=== PATIENT | male | born 1995 | race Caucasian/White ===

== ENCOUNTER 2017-01-19 01:07 | Emergency (ER) | payer OTHER, BC ==
--- NOTE | 2017-01-19 01:12 | EDPHY ---
H & P HPI/ROS: HPI CHIEF COMPLAINT: Closed head injury HISTORY OF PRESENT ILLNESS: This patient otherwise healthy 21-year-old male, no significant medical history he is doing an technical internship at the restaurant called [employer] on per history, he is from [place] where he is enrolled in college, he is doing an technical internship over the summer. He works in the kitchen. He presents emergency room after states he was pulling off a cutting board off of a shelf and another 1 on top of the cutting body was pulling fell off the shelf in him on top of the head. No LOC. Minimal headache. He took Tylenol prior to arrival. This happened at 10 o'clock at night approximately 3 hours ago. No LOC. No ongoing headache. Does tell me that the light bothers him slightly. He does have previous 2 concussions. He is concerned he may have another concussion. Past Medical History: Concussion Past Surgical History: No recent surgical history Social History: Denies daily use of drugs alcohol tobacco products, from [place], doing technical internship Family History: Noncontributory ROS REVIEW OF SYSTEMS: A comprehensive 10 point review of systems is otherwise negative aside from elements mentioned in the history of present illness. Exam Constitutional appears well nontoxic, triage nursing summary reviewed, vital signs reviewed, awake/alert. Eyes normal conjunctivae and sclera, EOMI, PERRLA. HENT normal inspection, atraumatic, moist mucus membranes, no epistaxis, neck supple/ no meningismus, no raccoon eyes. Respiratory clear to auscultation bilaterally, normal breath sounds, no respiratory distress, no wheezing. Cardiovascular rate normal, regular rhythm, no murmur, no edema, distal pulses normal. Gastrointestinal soft, non-tender, no rebound, no guarding, normal bowel sounds, no distension, no pulsatile mass. Genitourinary no CVA tenderness. Musculoskeletal no midline vertebral tenderness, full range of motion, no calf swelling, no tenderness of extremities, no meningismus, good pulses, neurovascularly intact. Skin pink, warm, & dry, no rash, skin atraumatic. Neurologic awake, alert and oriented x 3, AAOx3, moves all 4 extremities equally, motor intact, sensory intact, CN II-XII intact, normal cerebellar, normal vision, normal speech. Psychiatric normal mood/affect. Heme/Lymph/Immune no lymphadenopathy. Differential Diagnosis: Includes but is not limited to in a particular order closed-head injury, concussion, doubt intracranial bleed, doubt skull fracture. Medical Decision Making: This patient is neurological exam is unremarkable he has no complaints here in the emergency room. No significant signs of head trauma. Normal cranial nerves. No indication for imaging. Patient most likely has a very mild concussion versus closed head injury. Recommend follow up with primary care doctor return emergency room if there is any worsening symptoms includes severe headache, vomiting or questions or concerns. Re-evaluation: Source: Patient Constitutional: Initial Vital Signs Temperature (C) 36.3 C 01/19/17 01:09 Heart Rate 77 01/19/17 01:09 Respiratory Rate 16 01/19/17 01:09 Blood Pressure 121/81 H 01/19/17 01:09 O2 Sat (%) 95 01/19/17 01:09 O2 Delivery Mode Room Air Allergies/Adverse Reactions: No Known Allergies Allergy (Unverified 01/19/17 01:13) Home Medications: Medication Instructions Recorded NK [No Known Home Meds] 01/19/17 Departure - Departure Disposition: Home, Routine, Self-Care Clinical Impression: Head injury Qualifiers: Encounter type: initial encounter Qualified Code(s): S09.90XA - Unspecified injury of head, initial encounter Concussion Qualifiers: Encounter type: initial encounter Loss of consciousness presence/duration: without LOC Qualified Code(s): S06.0X0A - Concussion without loss of consciousness, initial encounter Condition: Good Instructions: Concussion (ED), Head Injury (ED) Additional Instructions: 1. Return emergency room if develops any worsening symptoms includes severe headache, vomiting or questions or concerns. Referrals: NONE *PRIMARY CARE P,. [Primary Care Provider] - As per Instructions
[2017-01-19 01:13] VITALS: BP 121/81; PULSE 77; RESP 16; TEMP 97.3; O2SAT 95
== END 2017-01-19 01:42 | disposition home or self-care (01) ==
DX: S06.0X0A Concussion without loss of consciousness, initial encounter (principal); W20.8XXA Other cause of strike by thrown, projected or falling object, initial encounter